=== PATIENT | male | born 1980 | race Caucasian/White ===

== ENCOUNTER 2016-04-04 12:55 | Emergency (ER) | payer BC ==
[~2016-04-04] VITALS: Ht 188 cm; Wt 90.0 kg
[2016-04-04 13:00] VITALS: BP 154/94
[2016-04-04 14:04] LABS: INFLUENZA VIRUS TYPE A ANTIBOD Positive (NEGATIVE); INFLUENZA VIRUS TYPE B ANTIBOD Negative (NEGATIVE)
== END 2016-04-04 14:00 | disposition home or self-care (01) ==
LOC: ED 12:59
DX: J11.1 Influenza due to unidentified influenza virus with other respiratory manifestations (principal)
CPT/HCPCS: 87502; 99282; 99283